=== PATIENT | female | born 1940 | race Caucasian/White ===

== ENCOUNTER 2016-08-03 15:18 | Inpatient (IN) | payer MEDICARE ==
[~2016-08-03] VITALS: Ht 167.6 cm; Wt 74.0 kg
--- NOTE | ~2016-08-03 | CON ---
PATIENT'S NAME: JADA MYERS [facility] AGE: 76 Y [address] ROOM: [address] [place] [address] LOCATION: GICU ADMIT DATE: 08/03/2016 Consultation DISCHARGE DATE: FAMILY PHYSICIAN: PHYSICIAN, UNKNOWN ATTENDING PHYSICIAN: NAVDEEP JOHNSTON DATE OF CONSULTATION: 08/03/2016 REFERRING PHYSICIAN: ALTA MURRELL MD The patient was seen on neurologic consultation on 08/03/2016 at approximately 4:30 p.m. HISTORY OF PRESENT ILLNESS: Ms. Myers is a 76-year-old female patient who is independent, but probably has very mild dementia and she has been followed by Fior Lance, her primary care doctor. At some time around 2:00 p.m. this afternoon, the patient was noted to have a sudden onset of confusion, neologisms with word salad type of an aphasia. She would look at the observer and ask questions, but the words would be all jumbled up, nonsense words. This would be consistent with a possibility of an acute aphasia into the left parietal lobe. Initially, this was probably not recognized as the blood pressure was very high upon her arrival here into the hospital, with a blood pressure into the 239 systolic range. Thus, it was initially thought to be a hypertensive emergency type of presentation with confusion. It became clearer after the blood pressure was brought down that this was not a confusion state, but was more consistent with a primary sensory aphasia. Therefore, with Dr. Torres here and myself examined the patient, giving the NIH stroke scale around the 9. The patient was given tPA at 5:30 p.m. We are waiting some improvement with her speech if at all would be present in the next few hours. The patient's family is present and understands risks and benefits based upon giving tPA. The patient was following some basic commands to elevate her left upper and lower extremity, but was essentially confused to answering questions. She seemed to have a profound neglect of her right side, but was not ignoring persons on her right side nonetheless. Based upon the patient's receiving tPA, she will be sent to the ICU for 24 hours while she goes through recovery from this stroke. On a current monitor, she is noted to be in normal sinus rhythm at 86 beats per minute. No acute ST or T-wave changes were seen. A CT of the brain prior to giving tPA did not display any evidence to suggest any acute stroke. There was generalized atrophy for age. No mass was seen. PRIOR MEDICAL HISTORY: She does have a history of likely hypertension, perhaps depression, and perhaps bipolar disease. This is a conjecture at this point in time. Further information will be given by the family members. PATIENT'S NAME: JADA MYERS [facility] AGE: 76 Y [address] ROOM: [address] [place] [id number] LOCATION: [facility] ADMIT DATE: 08/03/2016 Consultation DISCHARGE DATE: FAMILY PHYSICIAN: PHYSICIAN, UNKNOWN ATTENDING PHYSICIAN: NAVDEEP JOHNSTON CURRENT LABORATORIES: Reveal a complete metabolic panel was within normal limits as well as a CBC and coagulation profile. TSH is normal at 1.89. Troponin was slightly elevated to 0.084. SOCIAL HISTORY: The patient does not smoke. There is no alcohol use. She lives alone, but is high functioning. She does see her primary medical doctor, Dr. Lance. SURGICAL HISTORY: She had a right hip fracture. She also has a history of coronary artery disease, status post a 4-vessel bypass grafts. FAMILY HISTORY: She has 2 sisters alive and 1 brother alive, they are known to be healthy. Her parents were farmers, unknown prior medical history. ALLERGIES: SHE HAS NO KNOWN ALLERGIES. REVIEW OF SYSTEMS: The patient presents with a Wernicke's aphasia with word salad incomprehensible speech. She is alerting, but not oriented to situation and place. She is not delirious. She has minor agitation. She seems to move her left side more than the right and somewhat neglecting to move the right side. The rest of the review of systems is negative for any acute pathology or known pathology. PHYSICAL EXAMINATION: VITAL SIGNS: Pulse of 86 and regular, respiration rate 12, blood pressure 176/83, and temperature is afebrile. NEURO: Cranial nerves: There is no appreciable facial droop. She has a tendency to look a bit more to the left though there is no forced eye deviation. Neck is supple on flexion and extension. She is able to elevate her arms and legs, but tends to neglect her right arm and her right leg. Sensory Exam: She has a clear component of neglect on the right hemibody. IMPRESSION: Ms. Myers is a 76-year-old female patient who received tPA in the setting of presentation with primarily a language deficit which appears to be a Wernicke's type of any aphasia. She has a word salad jumbled words without any syntax or context and also neologisms, which would be consistent with a stroke into the left MCA territory, more involving the left parietal region which controls sensory input, the language section of the insular region. Hopefully, we will see some improvement in her ability to understand the PATIENT'S NAME: JADA MYERS [facility] AGE: 76 Y [address] ROOM: [place] [address] LOCATION: [facility] ADMIT DATE: 08/03/2016 Consultation DISCHARGE DATE: FAMILY PHYSICIAN: PHYSICIAN, UNKNOWN ATTENDING PHYSICIAN: NAVDEEP JOHNSTON spoken questions to her and hopefully putting sentences together. We will hold aspirin for now. We are also holding getting a brain imaging until the patient is a bit more stable up in the ICU. No evidence of any arrhythmia on the monitor and there is no known history of atrial fibrillation. Due to the aspect that does have a slight elevation in her troponin, we may want to follow her troponin levels as well as get a basic echocardiogram to see left ventricular function. We will follow along with the patient's status here long with the Hospitalist Service. MD ANGELA FLEMING/modl /[id number] d: 08/03/162339 t: 08/05/162229, CONSULTATION REPORT
--- NOTE | ~2016-08-03 | DS ---
PATIENT'S NAME: JADA OLGUIN [facility] AGE: 76 Y [address] ROOM: [id number] [place], [place] [address] LOCATION: [facility] ADMIT DATE: 08/03/2016 Discharge Summary DISCHARGE DATE: 08/05/2016 FAMILY PHYSICIAN: Physician, Unknown ATTENDING PHYSICIAN: Tammy Encinas PRIMARY DIAGNOSES: 1. Cerebrovascular accident. 2. Wernicke's aphasia. 3. Diabetes type 2 with hyperglycemia. 4. Essential hypertension. 5. Dyslipidemia. PRINCIPAL PROCEDURE: Done for the patient includes administration of TPA. LABORATORY DATA: Labs on admission, pH of 7.56, pCO2 of 20, pO2 of 86, bicarb 17.9. WBC on admission was 10.5, was stable throughout the hospital stay, prior to discharge was 6.2; H and H on admission were 12.4 and 37.0, was stable throughout the hospital stay. On admission, creatinine was 0.7, was also stable throughout the hospital stay, prior to discharge was 0.5; sodium on admission was 137, was also stable throughout the hospital stay, prior to discharge was 141; potassium was 4.3 on admission, was stable, upon discharge at 4.3; bicarb on admission was 21, was also stable, on admission was 25. Hemoglobin A1c 7.9. Total cholesterol was 121, triglycerides 59. Procalcitonin less than 0.05. MICROBIOLOGY DATA: None was indicated. RADIOLOGY DATA: Chest x-ray, there is prominence of the central pulmonary vessels. I cannot exclude vascular congestion. This is accentuated by suboptimal inspiration. CT head, negative head CT. MRI, scattered periventricular and pontine small- vessel ischemic changes with no acute cortical ischemia or hemorrhage identified. Echocardiogram, ejection fraction 55% to 60%, grade 1 diastolic dysfunction, mild tricuspid regurgitation. HOSPITAL COURSE: For history of present illness, please take a look at the H and P, which was done by Dr. Montaño. The patient was admitted to ICU following the administration of tPA for Wernicke's aphasia, which was well tolerated by the patient, and the patient was monitored in the ICU per the protocol for 24 hours. By the next day of the hospital stay, the patient's aphasia had improved significantly. She became gregarious person, well talkative; PATIENT'S NAME: JADA OLGUIN [facility] AGE: 76 Y [address] ROOM: [id number] [place], [place] [address] LOCATION: [facility] ADMIT DATE: 08/03/2016 Discharge Summary DISCHARGE DATE: 08/05/2016 FAMILY PHYSICIAN: Physician, Unknown ATTENDING PHYSICIAN: Tammy Encinas however, she did have some problems to remember some words, and also by the next day of the hospital stay, she had no neurological deficits. She was started on physical therapy as well as occupational therapy, and she completed her stroke workup. Her carotid duplex scan was within a normal limit. Echocardiogram, which was done as well was also within a normal limit. By the second day of the hospital stay, the patient's mentation was back to her baseline, talking without much difficulty, finding words, was able to ambulate with physical therapy, essentially had no neurological deficits, and the patient was ready to be discharged home. However, family raised concern of not wanting the patient to be discharged home to live by herself, and we gave them the option of possibly home health or going to an assisted living facility versus a swing bed versus SNF, and they reported that they will hold a family meeting and decide. I told them that medically the patient was stable to go home, and the other option which I gave for them was to take the patient home so that they would supervise her as she did not demonstrate any neurological deficits. So plan is for the patient to continue with outpatient physical therapy, occupational therapy, and speech therapy, and the patient has been told not to drive for the next one month until she is cleared by her PCP. MEDICATIONS ON DISCHARGE: 1. Lipitor 80 mg p.o. q.h.s. 2. Lexapro 20 mg p.o. daily. 3. Amaryl 40 mg p.o. twice daily. 4. Insulin glargine 30 units subcu q.a.m. 5. Lamictal 50 mg p.o. q.h.s. 6. Glucophage 1 g p.o. twice daily. 7. Singulair 10 mg p.o. daily. 8. Prilosec 40 mg p.o. daily. 9. Verapamil 180 mg p.o. daily. 10. FiberCon 625 mg p.o. daily. 11. Aspirin 81 mg p.o. daily. 12. Drisdol 50,000 units p.o. q.7 days. 13. 25 mg p.o. daily p.r.n. 14. Tolterodine 4 mg p.o. daily. MD GAGE OWENS/sophie /[id number] d: 08/05/16 2326 t: 08/16/16 1642, DISCHARGE SUMMARY
--- NOTE | ~2016-08-03 | DS ---
PATIENT'S NAME: JADA OLGUIN [facility] AGE: 76 Y [address] ROOM: [place] [address] LOCATION: GICU ADMIT DATE: 08/03/2016 Discharge Summary DISCHARGE DATE: 08/06/2016 FAMILY PHYSICIAN: Fior Lance MD ATTENDING PHYSICIAN: Tammy Encinas ADDENDUM: DISCHARGE MEDICATION: Diphenhydramine 25 mg p.o. daily p.r.n. MD GAGE OWENS/sophie /[id number] d: 08/29/16 0055 t: 09/02/16 1413, DISCHARGE SUMMARY
--- NOTE | ~2016-08-03 | HP ---
PATIENT'S NAME: JADA OLGUIN [facility] AGE: 76 Y [address] ROOM: [place] [id number] LOCATION: [facility] ADMIT DATE: 08/03/2016 History & Physical DISCHARGE DATE: FAMILY PHYSICIAN: PHYSICIAN, UNKNOWN ATTENDING PHYSICIAN: NAVDEEP JOHNSTON DATE OF SERVICE: CHIEF COMPLAINT: Acute CVA. HISTORY OF PRESENT ILLNESS: This is a 76-year-old female with a history of diabetes, hypertension, hyperlipidemia, admitted for stroke workup. The patient presented to the emergency room by squad after she was noted to have sudden onset difficulty in speech and word finding earlier this afternoon while she was hanging out with a friend. The friend noticed the changes in her speech and immediately had her brought to the emergency room. The patient after she got to the emergency room was indeed noted to have what appeared to be Wernicke's type aphasia and Neurology consultation was conducted right away and the patient was given tPA. During my evaluation, the patient continues to have trouble with word finding. At this point, we will continue to monitor in the ICU setting and pursue CVA workup. PAST MEDICAL HISTORY: Diabetes, hypertension, and hyperlipidemia. SOCIAL HISTORY: No history of smoking, alcohol, or drug use noted. FAMILY HISTORY: The patient has a history of heart disease in first degree relative including parents. REVIEW OF SYSTEMS: A full review of systems was not able to be conducted due to the patient's state of mind currently. PHYSICAL EXAMINATION: VITAL SIGNS: Blood pressure 146/100, heart rate 95, and saturating 96% on room air. GENERAL: The patient is awake, but not alert and oriented. Does not appear to be in distress. HEENT: Moist mucous membranes. No scleral icterus. Conjunctival pallor noted. PATIENT'S NAME: JADA OLGUIN [facility] AGE: 76 Y [address] ROOM: [address] [address] LOCATION: [facility] ADMIT DATE: 08/03/2016 History & Physical DISCHARGE DATE: FAMILY PHYSICIAN: PHYSICIAN, UNKNOWN ATTENDING PHYSICIAN: NAVDEEP JOHNSTON SKIN: Without rash or lesions. HEART: S1, S2. Regular rate and rhythm. ABDOMEN: Soft, nontender, nondistended. Positive bowel sounds. CHEST: Clear to auscultation bilaterally. EXTREMITIES: Without edema. NEURO: Nonfocal exam on the extremities, but does exhibit Wernicke's aphasia and trouble comprehending. ASSESSMENT AND PLAN: 1. Acute cerebrovascular accident. The patient presented within the tPA window and with Neurology consultation the patient was given tPA in the ED. The patient continues to exhibit Wernicke's aphasia. We will continue to monitor. We will pursue acute cerebrovascular accident workup with carotid ultrasound, MRI, echo, and tele monitoring. We will put the patient on aspirin 24 hours after tPA. 2. Hypertension. We will manage blood pressure per tPA guidelines for now. 3. Type 2 diabetes. We will use sliding scale insulin while the patient is n.p.o. and continue to monitor. 4. Hyperlipidemia. We will get a lipid panel and start the patient on high- dose statin once she is able to take p.o.. 5. History of coronary artery disease, status post coronary artery bypass grafting. We will continue her cardiac medications. 6. Deep vein thrombosis prophylaxis. We will use sequential compression devices. MD PALMER MAURICIO/modl /[id number] D: [id number] T: [id number] HISTORY & PHYSICAL
--- NOTE | ~2016-08-03 | ECHO ---
Transthoracic Echocardiography Report (TTE) Demographics Patient Name JADA OLGUIN Date of Study 08/05/2016 [facility]ITA Patient Number [id number] Visit Number [id number] Date of 1940 Room Number [id number] Gender Female Number Age 76 year(s) Referring [facility] Bottled Beverage Inspector Magdalena Serna [facility] Physician Physician Interpreting Jacquelyn Wing Knitting Machine Fixer Head Physician A MD Supervising Ordering MD/MLP Physician Nurse Stress Driver'S License Reviewing Officer Conclusions Contractility Score Summary Normal Left Ventricular contractility was noted. Summary The estimated left ventricular ejection fraction is 55-60%. Diastolic assessment reveals Grade I diastolic dysfunction. Mild tricuspid regurgitation by color Doppler. Procedure Type of Study TTE procedure:2D Echocardiogram. Procedure Date Date: 08/05/2016 Start: 08:16 AM Study Location: Inpatient Portable Indications:CVA. Appropriate Use Criteria: 9 Patient Status: Routine BP: 139/75 mmHg M-Mode/2D Measurements LV Diastolic Dimension: 4.65 cm LV Systolic Dimension: 2.3 cm LV Septum Diastolic: 0.95 cm LV PW Diastolic: 0.93 cm AO Root Dimension: 2.2 cm AV Cusp Separation: 1.7 cm RV Diastolic Dimension: 3.08 cm LA Dimension: 3.4 cm LA volume: 45 ml LVOT: 2 cm TAPSE: 1.94 cm LVOT VTI: 21.1 cm LV Stroke volume: 66.25 ml Doppler Measurements AV Peak Velocity: 1.28 m/s MV Peak E-Wave: 0.88 m/s AV Peak Gradient: 6.55 mmHg MV Peak A-Wave: 1.07 m/s AV Mean Gradient: 3 mmHg MV E/A Ratio: 0.83 LVOT Peak Velocity: 1.2 m/s MV P1/2t: 60 msec TR Gradient:3.57 mmHg PV Peak Velocity: 0.91 m/s Estimated RAP:10 mmHg PV Peak Gradient: 3.31 mmHg Estimated RVSP: 14 mmHg Estimated PASP: 13.57 mmHg E' Septal Velocity: 0.03 m/s A' Septal Velocity: 0.06 m/s Findings Left Ventricle Diastolic assessment reveals Grade I diastolic dysfunction. Right Ventricle Normal right ventricle structure and function. Left Atrium Normal left atrial size. Bubble study was done, there is no evidence for a PFO or ASD. Right Atrium Normal right atrial size. Mitral Valve Trivial mitral regurgitation by color Doppler. Aortic Valve Mildly sclerotic trileaflet aortic valve Tricuspid Valve Mild tricuspid regurgitation by color Doppler. Pulmonic Valve Normal pulmonic valve structure and function. Pericardial Effusion No evidence of pericardial effusion. Pleural Effusion No evidence of pleural effusion. Signature dtt: Marta Valladares dtd: 08/05/16 0816 Physician Self Edit
--- NOTE | ~2016-08-03 | ER ---
PATIENT'S NAME: JADA OLGUIN [facility] AGE: 76 Y [address] ROOM: [place] [address] LOCATION: [facility] ADMIT DATE: 08/03/2016 ER/Outpatient Report DISCHARGE DATE: FAMILY PHYSICIAN: PHYSICIAN, UNKNOWN ATTENDING PHYSICIAN: NAVDEEP ENCINAS CHIEF COMPLAINT: Difficulty speaking. HISTORY OF PRESENT ILLNESS: According to a friend who brought her in today, sometime after 1:30 and before arrival to our emergency department at 3:28, the patient began to have some difficulty forming words and speaking appropriately. She is a little tremulous and appears to be cold, but the friend is most concerned about her talking. The friend notes that she had a similar episode. Yesterday where in she would be able to be given a sentence, but only get a few words into it and then could not complete it. She also had some forgetfulness of her family at that time. The friend notes that she is a little bit of strange to her family, but is otherwise the same. She does have a history of high blood pressure and some sort of a psychiatric illness and was unable to get one of her medications recently. The family notes that she is having some early stage dementia. PAST MEDICAL HISTORY: Documented on the record and reviewed by me. SOCIAL HISTORY: Documented on the record and reviewed by me. MEDICATIONS: Documented on the record and reviewed by me. ALLERGIES: DOCUMENTED ON THE RECORD AND REVIEWED BY ME. REVIEW OF SYSTEMS: All systems reviewed and negative except as noted in the HPI. PHYSICAL EXAMINATION: VITAL SIGNS: Blood pressure is 235/96, pulse 73, respiratory rate is 24, temperature 97.7, and SpO2 is 99% on room air. GENERAL: An age appropriate female, shaking with anxious appearance. No signs of distress or obvious pain. NEUROLOGIC: The patient is awake, it is unclear if she is alert. She PATIENT'S NAME: JADA OLGUIN [facility] AGE: 76 Y [address] ROOM: [place] [address] LOCATION: [facility] ADMIT DATE: 08/03/2016 ER/Outpatient Report DISCHARGE DATE: FAMILY PHYSICIAN: PHYSICIAN, UNKNOWN ATTENDING PHYSICIAN: NAVDEEP ENCINAS intermittently creates new words as well as speaks appropriate words that are recognizable with no dysarthria. However, she does not speak appropriate sentences. She does not follow commands exactly. She will hold her extremities in position with no drift, but they must be placed there and told not to move. She will not move them to that position. She is moving all extremities spontaneously. She endorses decreased sensation everywhere. However, does respond to pain in all extremities. She is unable to perform visual field testing as well as ataxia testing. She cannot identify pictures. No obvious strength and asymmetry on exam. HEENT: Normocephalic and atraumatic. The eyes are PERRL. Oropharynx is clear. NECK: Supple. Trachea is midline. CHEST: Heart is regular rate and rhythm with no murmurs. LUNGS: Clear to auscultation bilateral with no rhonchi, wheezes, or rales. ABDOMEN: Soft, nontender, and nondistended. No rebound or guarding. BACK: Normal to inspection and palpation without tenderness. EXTREMITIES: Warm and well perfused. SKIN: Warm, dry, and intact. LABORATORY DATA: Labs and x-rays: Head CT without significant abnormality per Radiology review. Chest x-ray is grossly unremarkable per my review. EKG reveals sinus rhythm with no significant abnormalities per my read. Some mild artifact makes close interpretation difficult. Labs: CBC without any significant abnormalities. White count of 10.5, and serum lactate is 5.5, INR is 1.02. Serum ketones are negative. CMS is notable for a glucose of 139, otherwise grossly unremarkable. No evidence of renal or hepatobiliary dysfunction. Troponin is detectable at 0.084. Ammonia is below detectable threshold. Urinalysis with no leukocytes or nitrites or blood. Procalcitonin is below detectable threshold. IMPRESSION: 1. Wernicke's aphasia, possibly secondary to stroke. 2. Hypertension with urgency versus emergency. 3. Diabetes. EMERGENCY DEPARTMENT COURSE: The patient was seen and evaluated as above. Broad differential was entertained including hypertensive urgency and emergency, stroke as well as medication withdrawal or medication side effect. Review of the medications make this less likely. The patient's blood pressure was treated with IV nitroglycerin. This did not make any changes in her mental status and ability to speak. She was ultimately called a stroke alert. Dr. Collins was able to evaluate the patient and he elected to administer tPA. The patient will be PATIENT'S NAME: JADA OLGUIN [facility] AGE: 76 Y [address] ROOM: [address] [address] LOCATION: [facility] ADMIT DATE: 08/03/2016 ER/Outpatient Report DISCHARGE DATE: FAMILY PHYSICIAN: PHYSICIAN, UNKNOWN ATTENDING PHYSICIAN: NAVDEEP ENCINAS admitted to the intensive care unit for further evaluation and treatment of this issue under the care of Dr. Encinas with Dr. Collins as consulting. CRITICAL CARE TIME: 58 minutes of critical care time was spent directly on this patient; patient evaluation; collecting collateral history from family and friends; ordering chest x-ray, EKG, and labs; interpreting them; and acting on them as needed; ordering a head CT, initiating and titrating nitroglycerin drip; consulting neurology and hospitalist. Critical care is warranted for significant hemodynamic abnormalities with marked hypertension in the setting of two organ system dysfunction with elevated troponin and cerebral dysfunction. EKG is not consistent with acute ischemia. She will need to be admitted for further evaluation and treatment, status post tPA. All questions were answered to the best of my ability. I did discuss the case with the patient's oldest daughter Vale Cazares and the patient will be admitted. MD KAYY LANG/sophie /[id number] d: 08/04/161399 t: 08/14/16 1733, OUTPATIENT REPORT
--- NOTE | ~2016-08-03 | ENPV ---
Carotid Duplex Study Demographics Patient Name JADA OLGUNI Date of Study 08/05/2016 MARITA Patient Number [id number] Gender Female Date of 1940 Age 76 Visit Number [id number] Height 66 Weight 165 Number Referring [facility] Tammy Interpreting Jacquelyn Wing Physician Physician A Physician Ordering Length Control Tester Physician Forging Engineer Magdalena Serna [facility] Conclusions Summary The right internal carotid artery has mild, 1-39%, plaque and stenosis. There is a mild amount of smooth heterogeneous plaque in the right carotid bifurcation . The right vertebral artery is antegrade. The left internal carotid artery has mild, 1-39%, plaque and stenosis. There is a mild amount of smooth heterogeneous plaque in the left internal carotid artery . The left vertebral artery is antegrade. Procedure Type of Study: Cerebral:Carotid, Carotid Doppler Bilateral. Appropriate Use Criteria:7 Patient Status:Routine. Study Location:Inpatient Portable. Technical Quality:Adequate visualization. Velocities are measured in cm/s ; Diameters are measured in cm Carotid Right Measurements Carotid Left Measurements + +--------+--------+ + + + +--------+- -------+ + + !Location !PSV !EDV !Angle !%Stenosis ! !Location !PSV !E DV !Angle !%Stenosis ! + +--------+--------+ + + + +--------+- -------+ + + !Prox CCA !57 !14 !46 ! ! !Prox CCA !101 !3 0 !58 ! ! + +--------+--------+ + + + +--------+- -------+ + + !Dist CCA !63 !17 !58 ! ! !Dist CCA !91 !2 8 !58 ! ! + +--------+--------+ + + + +--------+- -------+ + + !Prox ICA !70 !19 !58 ! ! !Prox ICA !102 !1 9 !58 ! ! + +--------+--------+ + + + +--------+- -------+ + + !Dist ICA !60 !20 !58 ! ! !Dist ICA !81 !2 3 !58 ! ! + +--------+--------+ + + + +--------+- -------+ + + !Prox ECA !117 ! !58 ! ! !Prox ECA !94 ! !58 ! ! + +--------+--------+ + + + +--------+- -------+ + + !Vertebral !47 ! !46 ! ! !Vertebral !69 ! !58 ! ! + +--------+--------+ + + + +--------+- -------+ + + - There is antegrade vertebral flow noted on the right side. - There is antegrade verte bral flow noted on the left side. - Add'l Measurements:ICAPSV/CCAPSV 1.23.ICAEDV/CCAEDV 1.49. - Add'l Measurements:ICAPS V/CCAPSV 1.01.ICAEDV/CCAEDV 0.76. Impressions Right Impression There is a mild amount of smooth heterogeneous plaque in the right carotid bifurcation . The right vertebral artery is antegrade. Left Impression There is a mild amount of smooth heterogeneous plaque in the left internal carotid artery . The left vertebral artery is antegrade. Signature dtt: Marta Valladares dtd: 08/05/16 0844 Physician Self Edit
[~2016-08-03 15:18] MED LIST: AMARYL4 MG PO; ASPIRIN LO-DOSE81 MG PO; DRISDOL 5050000 UNIT PO; DULCOLAX10 MG R; FIBERCON625 MG PO; GLUCOPHAGE500 MG PO; LAMICTAL25 MG PO; LANTUS (IN100 UNIT/M SUB-Q; LIPITOR80 MG PO; MILK OF MA400 MG/5 M PO; MOBIC15 MG PO; NORCO 5-325 MG1 TAB PO; NOVOLOG100 UNIT/M SUB-Q; PRILOSEC20 MG PO; VERAPAMIL ER180 MG PO
[2016-08-03 16:06] LABS: BASOPHIL # 0.1 K/uL (0.0-0.2); BASOPHIL % 0.5 %; EOSINOPHIL # 0.2 K/uL (0.0-0.5); EOSINOPHIL % 1.5 %; HEMOGLOBIN 12.4 g/dL (10.0-15.0); IMMATURE GRANULOCYTE # 0.1 K/uL (0.0-0.3); IMMATURE GRANULOCYTE % 0.5 %; LYMPHOCYTE # 1.9 K/uL (0.8-4.0); LYMPHOCYTE % 18.1 %; MCH 32.3 pg (27.0-34.0); MCHC 33.5 gm/dL (32.0-36.5); MCV 96.4 fl (83.0-98.0); MONOCYTE # 1.1 K/uL (0.0-1.0); MONOCYTE % 10.1 %; MPV 10.2 fl (9.4-12.4); NEUTROPHIL # (ANC) 7.2 K/uL (1.8-7.8); NEUTROPHIL % 69.3 %; NRBC % 0 /100WBC (0-0.00); PLATELET COUNT 324 K/uL (150-450); RDW-CV 12.9 % (11.9-14.6); WBC 10.5 K/uL (4.0-11.0)
[2016-08-03 16:08] LABS: RBC 3.84 M/uL (3.50-5.50)
[2016-08-03 16:13] LABS: INR - (THERAPEUTIC) 1.02 (0.92-1.07); PROTIME 10.7 SECONDS (9.8-11.4); PTT 24 SECONDS (25-32)
[2016-08-03 16:21] LABS: BILIRUBIN URINE NEGATIVE (NEGATIVE); BLOOD URINE NEGATIVE /UL (NEGATIVE); COLOR URINE YELLOW (YELLOW); GLUCOSE URINE NEGATIVE (NEGATIVE); KETONE URINE 50 mg/dL (NEGATIVE); LEUKOCYTES URINE NEGATIVE /UL (NEGATIVE); NITRITE URINE NEGATIVE (NEGATIVE); PROTEIN URINE NEGATIVE (NEGATIVE); SPEC GRAVITY URINE 1.015 (1.003-1.035); TURBIDITY URINE CLEAR (CLEAR); UROBILINOGEN URINE NORMAL (NORMAL)
[2016-08-03 16:26] LABS: ALBUMIN 3.9 gm/dL (3.5-5.0); ALK PHOS 82 IU/L (33-138); ALT 19 IU/L (12-78); BLOOD UREA NITROGEN 12 mg/dL (6-24); CHLORIDE 102 mMol/L (96-110); CO2 21 mMol/L (22-32); CREATININE 0.7 mg/dL (0.5-1.1); ESTIMATED GFR (MDRD EQUATION) > 60; SODIUM 137 mMol/L (135-145); TOTAL BILIRUBIN 1.1 mg/dL (0.0-1.5); TOTAL PROTEIN 7.1 g/dL (6.0-8.4)
[2016-08-03 16:27] LABS: ANION GAP 18.3 (10.0-19.0); AST 18 IU/L (10-40); POTASSIUM 4.3 mMol/L (3.7-5.1)
[2016-08-03 16:54] LABS: BICARBONATE 17.9 mmol/L (18.0-23.0); PCO2 20 mmHg (35-45); PO2 86 mmHg (80-90)
[2016-08-03] MEDS ORDERED: SINGULAIR10 MG PO (19:29)
[2016-08-03] MEDS ORDERED: ALLERGY25 M1 PO (19:30)
[2016-08-03] MEDS ORDERED: TOLTERODINE TART4 MG PO (19:31)
[2016-08-03] MEDS ORDERED: LEXAPRO20 MG PO (19:31)
[2016-08-04 01:12] LABS: ANION GAP 16.6 (10.0-19.0); BLOOD UREA NITROGEN 12 mg/dL (6-24); CALCIUM 8.5 mg/dL (8.5-10.5); CHLORIDE 103 mMol/L (96-110); CO2 20 mMol/L (22-32); CREATININE 0.5 mg/dL (0.5-1.1); ESTIMATED GFR (MDRD EQUATION) > 60; POTASSIUM 3.6 mMol/L (3.7-5.1); SODIUM 136 mMol/L (135-145)
--- NOTE | 2016-08-04 05:12 | NUR ---
Significant Event: Pt was admited at 1828. On admition she was having difficulties speaking, and using the correct words. TPA was started at 1734. During third assessment pt's speech was much more clear and she is orineted x3. Pupils are equal and reactive. Moves all extremities spontaneously and to command. Denies any headache or numbness or tingling. Pt's 2300 accu check was low and 1/2 amp of D50 was given. Broussard cath in place with adequate urine output. 2 small BM's this shift. [address] Follow up: MRI, CT, Echo, and Dopler today.
[2016-08-04 05:24] LABS: ANION GAP 13.1 (10.0-19.0); BLOOD UREA NITROGEN 12 mg/dL (6-24); CALCIUM 8.5 mg/dL (8.5-10.5); CHLORIDE 104 mMol/L (96-110); CO2 20 mMol/L (22-32); CREATININE 0.4 mg/dL (0.5-1.1); ESTIMATED GFR (MDRD EQUATION) > 60; MAGNESIUM 2.1 mg/dL (1.8-2.6); POTASSIUM 4.1 mMol/L (3.7-5.1); SODIUM 133 mMol/L (135-145)
--- NOTE | 2016-08-04 09:02 | NUR ---
CONSULT RECEIVED PER STROKE PROTOCOL. TPA GIVEN. WILL PROVIDE DIET ED PRIOR TO DC APPROPRIATE.
--- NOTE | 2016-08-04 15:23 | NUR ---
Significant Event: PT A&O x3, forgetful, very slight aphasia. VSS, on room air. PT denies pain. No numbness, tingling or decreased sensation. PIV patent. PT tolerating diabetic diet. AC/HS accuchecks. PT ambulates with gait belt and 1 assist. Broussard dc'd, voiding without difficulties. Moderate BM this shift. Follow up:
--- NOTE | 2016-08-05 03:53 | NUR ---
Significant Event: Pt is alert and orineted x3, forgetful at times. Moves all extrimities spontaneously and to command. Ambulates with a stand by assist. NIHSS score of 1. Afebrile. On Room air. Ambulates to the toilet to void. No BM this shift. [address] Follow up: Echo and Dopplers today.
[2016-08-05 05:28] LABS: BASOPHIL # 0.1 K/uL (0.0-0.2); EOSINOPHIL # 0.4 K/uL (0.0-0.5); EOSINOPHIL % 5.6 %; HEMOGLOBIN 12.5 g/dL (10.0-15.0); IMMATURE GRANULOCYTE % 0.2 %; LYMPHOCYTE # 2.3 K/uL (0.8-4.0); LYMPHOCYTE % 37.3 %; MCH 32.3 pg (27.0-34.0); MCHC 33.8 gm/dL (32.0-36.5); MCV 95.6 fl (83.0-98.0); MONOCYTE # 0.7 K/uL (0.0-1.0); MONOCYTE % 10.6 %; MPV 10.4 fl (9.4-12.4); NEUTROPHIL # (ANC) 2.8 K/uL (1.8-7.8); NEUTROPHIL % 45.3 %; NRBC % 0 /100WBC (0-0.00); PLATELET COUNT 263 K/uL (150-450); RBC 3.87 M/uL (3.50-5.50); RDW-CV 13.2 % (11.9-14.6); WBC 6.2 K/uL (4.0-11.0)
[2016-08-05 05:35] LABS: ANION GAP 13.3 (10.0-19.0); BLOOD UREA NITROGEN 11 mg/dL (6-24); CALCIUM 8.7 mg/dL (8.5-10.5); CHLORIDE 107 mMol/L (96-110); CO2 25 mMol/L (22-32); CREATININE 0.5 mg/dL (0.5-1.1); ESTIMATED GFR (MDRD EQUATION) > 60; POTASSIUM 4.3 mMol/L (3.7-5.1)
[2016-08-05 05:36] LABS: SODIUM 141 mMol/L (135-145)
--- NOTE | 2016-08-05 16:13 | NUR ---
Received phone call to critical care nurse practitioner phone from VERONICA Swift on ICU stating Dr. Scott has signed discharge orders for patient but family has questions regarding swingbed or home health care. I arrived on the floor approximately 1515 and met with patient and daughter Vale. Vale is going out of town to [place] for 6 days. She is leaving tomorrow and she has concerns about her mom discharging to home without any supports in place. Patient wants to make sure that she has a life line/alert prior to disharging to home. I met with them both and patient is still counfused and has difficulty understanding our discussion on swing bed vs halfway facility vs home health care. I explained to patient and Vale that we do not have a swing bed here in [place] and the only option we have available would be the halfway facilities. Patient refuses to go to [facility] or [facility]. Her first choice for SNF is [facility]. I spoke to Dr. Scott and explained to him that I will not be able to get home health care arranged until tomorrow which means it would start tomorrow or Saturday. I also asked him about an inpatient rehab referral. He states we can do a referral for inpatient rehab, but the concern is that patient is ready for discharge, she has not acute needs at this time. I called [facility] and spoke to Tsering nurse on the floor and they currently are full and do not anticipate having any beds available until mid to end of the week. Per Dr. Scott, we will NOT make referral to [facility] as patient is ready for discharge tomorrow. Plan is to move forward with referral to [facility] and [facility]. I did fax information to both of them at 1650 today. Second plan would be discharge to home with home health care. Face to face is complete, but I did not fax it yet as Dr. Scott feels a SNF would be best for a short term stay. Dr. Scott arrived on the floor at 1630 and met with ednatent and daughter. He discussed the above plan with them and completed the face 2 face form. Will need to sepak to daughter Sherrie [phone] or or son Gunnar [phone] since daughter Vale will be in [place] starting 08/06/16. Patient has no preference on a home health agency. CM following patient will need to follow up with [facility] tomorrow or move forward with [facility] referral.
--- NOTE | 2016-08-05 17:08 | NUR ---
Significant Event:A/O X 3, forgetful IE: "I didn't have a stroke." "I know who you are." (patient never met me before). Assisted patient with a shower, then while rinsing patient, patient states, "So now lets wash my body." and rewashed herself again. Pleasant and cooperative. Laughs often, when she mispeaks or can not remember what is going on. Ambulated with physical therapy in the [place], worked with occupational therapy, problems with word fining, memory, impulsiveness, and understanding of her situation and decision making. Daughter reports "this is how she is," Daughter Vale voices concerns about patient being safe at home and requests therapies to follow patient and wants set up of life line. [place]. Assisted with shower and shampoo. Voids without problems. BM last night. Eating without problems, restarted on home meds. Blood sugars corrected with moderate sliding scale insulin. Orders to discharge with home health and to set up life line. Lissette Collazo voices concerns that patient is safe to go home and wants [facility], or SNF. lunch counter manager called and managed discharge requests of family for [facility] and [facility], (see FACe to [facility] paper work.) Otherwise patient will go home tomorrow with home health and bath aid, with plans to set up life line. Lissette Collazo reports that lissette Ghotra will be here to pick her up. Follow up:
--- NOTE | 2016-08-06 04:48 | NUR ---
Significant Event: Patient alert and oriented but forgetful. Difficulity with word finding at times. Inappropriate words at times. VSS on room air. Up with stand by assist. Denies pain. Pleasant and cooperative with cares. Plans for discharge today. Follow up: continue to monitor
--- NOTE | 2016-08-06 10:10 | NUR ---
Talked with Shirley, referral liaison for [facility]. She reviewed faxed referral and will see pt soon to assess, but feels confident they will be able to accept. Asked if they can accept this afternoon and she has to check room is clean and that staffing okay but if those check out they will. Waiting call back with final confirmation. Also called and left voicemail for Mary at [facility] to see what they are thinking and let them know what [facility] said.
--- NOTE | 2016-08-06 10:53 | NUR ---
Received call from Mary at [facility], they said they didn't have concerns about admitting pt as well after they came to formally assess, just let them know which SNF pt preferred. Called lissette Collazo [phone] that Cris with care management talked with yesterday. She reports her mom has decided to go home on discharge and they are okay with that, whatever her mom wants to do. I talked with patient and she does want to go home with HH, does not want to go to [facility] or [facility], and wants the HH she had when she broke her hip. I called [facility] and talked with Shirley, then called Mary back at [facility], and let them both know pt going home with HH. Pt went to [facility] after fractured hip last hospital stay and so would have had [facility]. I called [facility] and talked with Marielena [phone] and faxed referral to them at [phone]. They will call pt to set up time to go out. Called Jerilyn Arredondo with [facility] [phone] and left voicemail to contact pt about [facility] and to call me if questions. Let patient know and she is okay with this plan, then called lissette Collazo back and let her know plan, she is okay with that. Going home with HH today. Let nurse know.
== END 2016-08-06 14:52 | disposition home health service (06) | DRG 63 ==
LOC: GMED 15:18 → GICU 18:28
PROVIDERS: Emergency Medicine; Hospitalist; Internal Medicine; ADMIT Internal Medicine
DX: I63.9 Cerebral infarction, unspecified (principal); E11.65 Type 2 diabetes mellitus with hyperglycemia; F03.90 Unspecified dementia, unspecified severity, without behavioral disturbance, psychotic disturbance, mood disturbance, and anxiety; I10 Essential (primary) hypertension; M19.90 Unspecified osteoarthritis, unspecified site; F80.2 Mixed receptive-expressive language disorder; E78.5 Hyperlipidemia, unspecified; I25.10 Atherosclerotic heart disease of native coronary artery without angina pectoris; Z95.1 Presence of aortocoronary bypass graft
CPT/HCPCS: J2997; J3480; J7030; J7040; J7050